=== PATIENT | male | born 1940 | race Hispanic/Latino ===

== ENCOUNTER 2018-02-25 11:10 | Outpatient (CLI) | payer MEDICARE ==
--- NOTE | 2018-02-28 17:33 | Magnetic Resonance Report ---
MR scan of the cranium was performed without contrast. Pulse sequences included: 1. T1 weighted sagittal and axial images without contrast 2. T2 weighted axial and coronal images 3. FLAIR axial images 4. Diffusion-weighted axial images 5. Apparent diffusion coefficient images Views of the posterior fossa showed a normal craniocervical junction. Cerebellar pontine angles were normal with normal seventh-eighth nerve complexes. Brainstem and cerebellum were normal. The ventricular system showed no dilatation or distortion. Images of the hemispheres showed no areas of increased or decreased signal. Some mild cortical atrophy was seen not unusual at this age. Sinuses showed increased signal in both maxillary sinuses consistent with sinusitis. Flow voids in the [place] of [place] including vertebral and basilar arteries, orbits, pituitary and basal ganglia were normal. Impression: Normal MR scan of the cranium without contrast for age except for bilateral maxillary sinusitis
--- NOTE | 2018-02-28 17:35 | Magnetic Resonance Report ---
MR angiogram was performed of the intracranial circulation 3-D [id number] spoiled grass images were obtained of the intracranial circulation. The images of the carotid arteries showed no areas of occlusion or aneurysmal dilatation. The vertebral basilar system was also patent without any evidence of occlusive disease. The left vertebral was not seen, a normal variation. Impression: Normal MR angiogram of the intracranial circulation.
== END 2018-02-25 11:11 | disposition home or self-care (01) ==
LOC: EEVIPCON 11:10 → MRI 11:10
PROVIDERS: ATTEND Specialist
DX: J32.0 Chronic maxillary sinusitis (principal); G31.9 Degenerative disease of nervous system, unspecified; R26.2 Difficulty in walking, not elsewhere classified; R55 Syncope and collapse; I99.8 Other disorder of circulatory system
CPT/HCPCS: 70544; 70551